=== PATIENT | male | born 1985 | race Two or more races ===

== ENCOUNTER 2021-06-02 08:22 | Emergency (ER) | payer BC, OTHER ==
[~2021-06-02] VITALS: Ht 170.2 cm; Wt 74.8 kg
[~2021-06-02 08:22] MED LIST: INSUPOW
[2021-06-02 09:03] VITALS: BP 138/86
[2021-06-02] MEDS ORDERED: IBUP800T27 PO (09:23)
== END 2021-06-02 10:21 | disposition home or self-care (01) ==
LOC: EDBD 08:22 → ER 08:22
DX: S83.91XA Sprain of unspecified site of right knee, initial encounter (principal); E11.9 Type 2 diabetes mellitus without complications; E78.5 Hyperlipidemia, unspecified; V43.52XA Car driver injured in collision with other type car in traffic accident, initial encounter; Y93.89 Activity, other specified; Y92.410 Unspecified street and highway as the place of occurrence of the external cause; Y99.8 Other external cause status
CPT/HCPCS: 73562